=== PATIENT | female | born 1955 | race Caucasian/White ===

== ENCOUNTER 2023-05-20 12:16 | Outpatient (OUT) | payer OTHER, SELFPAY ==
--- NOTE | 2023-05-20 12:28 | XR_ITS ---
The [address] [address] Patient Name: LETI BARRAZA MRN: [id number] date: 1955 Sex: F Assigned Patient Location: [facility] Current Patient Location: [facility] Accession/Order Number: [id number] Exam Date: 05/20/2023 12:42 Report Date: 05/20/2023 13:10 At the request of: CATALINO DE LUNA Procedure: XR chest 2V EXAM: XR chest 2V HISTORY: chronic cough R05.3 COMPARISON: None TECHNIQUE: PA and lateral views of the chest were obtained. FINDINGS: Heart and mediastinal contours are unremarkable in appearance. No acute infiltrate or consolidations are seen. No obvious pneumothorax. Postoperative sternotomy wires, plate and screws are noted. Cardiac valve prosthesis is noted. Mild degenerative changes in the dorsal spine with mild convexity to the right. Postoperative clips are noted in the upper abdomen. XR/XR chest 2V IMPRESSION: No acute process seen in the chest. Electronically authenticated by: ANUEL SPAULDING Date: 05/20/2023 13:10
== END 2023-05-20 12:17 | disposition home or self-care (01) ==
PROVIDERS: PCP Nurse Practitioner Family; Visit Provider Nurse Practitioner Family
DX: R05.3 Chronic cough (principal)
CPT/HCPCS: 71046